=== PATIENT | female | born 1940 | race Caucasian/White ===

== ENCOUNTER 2021-09-14 13:34 | Outpatient (CLI) | payer MEDICARE | END 2021-09-14 13:35 | disposition home or self-care (01) | LOC: CSHMAMMO 13:34 | PROVIDERS: ATTEND Family Medicine | DX: Z13.820 Encounter for screening for osteoporosis (principal); M85.89 Other specified disorders of bone density and structure, multiple sites | CPT/HCPCS: 77080 ==

== ENCOUNTER 2022-08-22 11:28 | Outpatient (CLI) | payer MEDICARE | END 2022-08-22 11:29 | disposition home or self-care (01) | LOC: CSHMAMMO 11:28 | PROVIDERS: ATTEND Family Medicine | DX: Z12.31 Encounter for screening mammogram for malignant neoplasm of breast (principal); Z80.3 Family history of malignant neoplasm of breast | CPT/HCPCS: 77063; 77067 ==